=== PATIENT | female | born 1970 | race Asian ===

== ENCOUNTER 2016-12-22 08:07 | Outpatient (CLI) | payer OTHER | END 2016-12-22 23:59 | DX: Z00.00 Encounter for general adult medical examination without abnormal findings (principal) ==

== ENCOUNTER 2017-08-29 14:45 | Outpatient (CLI) | payer OTHER | END 2017-08-29 15:00 | disposition home or self-care (01) | LOC: RT.N 14:45 | PROVIDERS: ATTEND Family Medicine | DX: R42 Dizziness and giddiness (principal) | CPT/HCPCS: 93005 ==

== ENCOUNTER 2017-10-04 08:30 | Outpatient (CLI) | payer OTHER | END 2017-10-04 08:45 | disposition home or self-care (01) | LOC: RT.N 08:30 | PROVIDERS: ATTEND Family Medicine | DX: Z53.9 Procedure and treatment not carried out, unspecified reason (principal) ==

== ENCOUNTER 2018-11-20 08:00 | Outpatient (CLI) | payer BC, MEDICARE ==
[2018-11-20 19:36] LABS: BASOPHILS # (AUTO) 0.1 10^3/uL (0.0-0.1); EOSINOPHILS # (AUTO) 0.1 10^3/uL (0.0-0.7); HGB - HEMOGLOBIN 13.1 g/dL (12.0-16.0); LYMPHOCYTES # (AUTO) 2.4 10^3/uL (1.5-3.5); MEAN CORPUSCULAR HEMOGLOBIN 28.5 pg (27.0-31.0); MEAN CORPUSCULAR HGB CONC 32.7 g/dL (32.0-36.0); MEAN PLATELET VOLUME 7.4 fL (7.9-10.8); MONOCYTES # (AUTO) 0.3 10^3/uL (0.0-1.0); MONOCYTES % (AUTO) 4.6 %; NEUTROPHILS # (AUTO) 4.2 10^3/uL (1.5-6.6); NEUTROPHILS % (AUTO) 58.4 %; PLT - PLATELET COUNT 398 10^3/uL (130-450); RED CELL DISTRIBUTION WIDTH 13.1 % (12.0-15.0); WHITE BLOOD COUNT 7.1 x10^3/uL (4.8-10.8)
[2018-11-20 19:56] LABS: BUN - BLOOD UREA NITROGEN 20 mg/dL (6-20); CALCIUM 9.3 mg/dL (8.5-10.3); CARBON DIOXIDE - CO2 26 mmol/L (21-32); CHLORIDE 102 mmol/L (101-111); CHOL/HDL RATIO 3.8 (<4.4); CHOLESTEROL 210 mg/dL; CREATININE 0.7 mg/dL (0.4-1.0); GFR - MDRD 90 (>89); GLUCOSE 95 mg/dL (70-100); HDL CHOLESTEROL 55 mg/dL; LDL CHOLESTEROL,CALCULATED 125 mg/dL; LDL/HDL RATIO 2.3 (<4.4); SODIUM 137 mmol/L (135-145); VLDL CHOLESTEROL 30 mg/dL
== END 2018-11-20 23:59 | disposition home or self-care (01) ==
LOC: LAB.N 08:00
PROVIDERS: ATTEND Physician Assistant Medical
DX: Z00.00 Encounter for general adult medical examination without abnormal findings (principal)
CPT/HCPCS: 36415; 80048; 80061; 83721; 84443; 85025

== ENCOUNTER 2020-02-14 11:03 | Outpatient (CLI) | payer OTHER, BC ==
--- NOTE | 2020-02-15 09:43 | XRAY Report ---
Reason: RIGHT FOOT PAIN Procedure Date: 02/14/2020 Accession Number: [id number] / [id number] Procedure: WCP - Foot 3 View RT CPT Code: Final Report FULL RESULT: EXAM: RIGHT FOOT RADIOGRAPHY EXAM DATE: 02/14/2020 11:03 AM. CLINICAL HISTORY: Right foot pain. Crushing injury to all digits on right foot 4 days ago. COMPARISON: None. TECHNIQUE: 3 nonweightbearing views. FINDINGS: Bones: There is an acute nondisplaced comminuted intra-articular fracture of the distal phalanx of the great toe. The other bones of the foot are intact. No bone lesion. There is mild spurring at the Achilles tendon insertion on the posterior calcaneus. Joints: Normal. No subluxations. Soft Tissues: There is soft tissue swelling of the forefoot and toes. IMPRESSION: Acute nondisplaced comminuted intra-articular fracture of the distal phalanx of the great toe. RADIA
== END 2020-02-14 11:04 | disposition home or self-care (01) ==
LOC: DI.WCP 11:03
PROVIDERS: ATTEND Family Medicine
DX: S92.424A Nondisplaced fracture of distal phalanx of right great toe, initial encounter for closed fracture (principal)

== ENCOUNTER 2020-03-20 14:13 | Outpatient (CLI) | payer OTHER, BC ==
--- NOTE | 2020-03-20 16:29 | XRAY Report ---
Reason: RIGHT GREAT TOE FRACTURE Procedure Date: 03/20/2020 Accession Number: [id number] / [id number] Procedure: WCP - Toe(s) RT CPT Code: Final Report FULL RESULT: PROCEDURE: Toe(s) RT INDICATIONS: RIGHT GREAT TOE FRACTURE TECHNIQUE: 3 views of the first toe(s) acquired. COMPARISON: Toe x-ray 02/14/2020 FINDINGS: Bones: Comminuted fracture at the proximal aspect of the distal first bones extending to the articular surface is identified. This appears slightly more prominent when compared to prior exam. Previous fracture lucency identified extending to the midportion towards the tuft remains present although less prominent when compared to prior exam. No suspicious bony lesions. Soft tissues: No suspicious soft tissue densities. IMPRESSION: First distal phalanx fracture with intra-articular extension with slightly more prominent appearance of lucency and diastases of the proximal portion compared to prior exam. Reviewed by: Dian Schroeder MD on 03/20/2020 4:28 PM PDT Approved by: Dian Schroeder MD on 03/20/2020 4:28 PM PDT Station ID: [id number]
== END 2020-03-20 23:59 | disposition home or self-care (01) ==
LOC: DI.WCP 14:13
PROVIDERS: ATTEND Family Medicine
DX: S92.421D Displaced fracture of distal phalanx of right great toe, subsequent encounter for fracture with routine healing (principal)
CPT/HCPCS: 73660

== ENCOUNTER → 2020-07-06 | Outpatient (CLI) | payer BC, OTHER ==
[2020-07-06 11:52] LABS: BASOPHILS % (AUTO) 0.3 %; EOSINOPHILS # (AUTO) 0.2 10^3/uL (0.0-0.7); EOSINOPHILS % (AUTO) 2.3 %; HGB - HEMOGLOBIN 13.1 g/dL (12.0-16.0); LYMPHOCYTES # (AUTO) 2.2 10^3/uL (1.5-3.5); LYMPHOCYTES % (AUTO) 29.7 %; MEAN CORPUSCULAR HEMOGLOBIN 28.7 pg (27.0-31.0); MEAN CORPUSCULAR HGB CONC 32.9 g/dL (32.0-36.0); MEAN CORPUSCULAR VOLUME 87.3 fL (81.0-99.0); MEAN PLATELET VOLUME 8.9 fL (7.9-10.8); MONOCYTES # (AUTO) 0.4 10^3/uL (0.0-1.0); MONOCYTES % (AUTO) 5.2 %; NEUTROPHILS # (AUTO) 4.7 10^3/uL (1.5-6.6); NEUTROPHILS % (AUTO) 62.2 %; PLT - PLATELET COUNT 391 10^3/uL (130-450); RED BLOOD COUNT 4.56 10^6/uL (4.20-5.40); RED CELL DISTRIBUTION WIDTH 11.8 % (12.0-15.0); WHITE BLOOD COUNT 7.5 x10^3/uL (4.8-10.8)
[2020-07-06 12:34] LABS: ALBUMIN 4.8 g/dL (3.2-5.5); ALBUMIN/GLOBULIN RATIO 1.2 (1.0-2.2); ALKALINE PHOSPHATASE 85 IU/L (42-121); ALT ALANINE AMINOTRANSFERASE 39 IU/L (10-60); AST ASPARTATE AMINOTRANSFERASE 28 IU/L (10-42); BILIRUBIN,TOTAL 0.6 mg/dL (0.2-1.0); BUN - BLOOD UREA NITROGEN 21 mg/dL (6-20); CALCIUM 9.6 mg/dL (8.5-10.3); CARBON DIOXIDE - CO2 26 mmol/L (21-32); CHLORIDE 102 mmol/L (101-111); CHOL/HDL RATIO 4.1 (<4.4); CHOLESTEROL 269 mg/dL; CREATININE 0.9 mg/dL (0.4-1.0); GLUCOSE 112 mg/dL (70-100); HDL CHOLESTEROL 65 mg/dL; LDL CHOLESTEROL,CALCULATED 172 mg/dL; LDL/HDL RATIO 2.6 (<4.4); SODIUM 138 mmol/L (135-145); TOTAL PROTEIN 8.8 g/dL (6.7-8.2); VLDL CHOLESTEROL 32 mg/dL
== END ==
LOC: LAB.WCP 09:55
PROVIDERS: ATTEND Family Medicine
DX: I10 Essential (primary) hypertension (principal)
CPT/HCPCS: 36415; 80053; 80061; 83721; 84443; 85025

== ENCOUNTER 2020-07-31 14:19 | Outpatient (CLI) | payer BC ==
--- NOTE | 2020-08-03 16:25 | Mammography Report ---
BILATERAL DIGITAL SCREENING MAMMOGRAM 3D/2D: 07/31/2020 CLINICAL: Baseline exam. No prior exams were available for comparison. There are scattered fibroglandular elements in both br easts. No significant masses, calcifications, or other findings are seen in either breast. IMPRESSION: NEGATIVE There is no mammographic evidence of malignancy. A 1 year screening mammogram is recommended. This exam was interpreted at Station ID: [id number]. NOTE: For mammograms, a report in lay terms will be sent to the patient. Approximately 15% of breast malignancies will not be visualized mammographically. In the management of a palpable breast mass, a negative mammogram must not discourage biopsy of a clinically suspicious lesion. Electronically Signed By: Ute morfin/nuha:07/31/2020 15:41:32 ACR BI-RADS Category 1: Negative 3341F PARENCHYMAL PATTERN: (A) - The breast(s) demonstrate(s) scattered fibroglandular densities. BI-RADS CATEGORY: (1) - 1 RECOMMENDATION: (ANNUAL) - Recommend routine annual screening mammography. [id number] 1 year screening LATERALITY: (B)
== END 2020-07-31 14:20 | disposition home or self-care (01) ==
LOC: DI.N 14:19
PROVIDERS: ATTEND Family Medicine
DX: Z12.31 Encounter for screening mammogram for malignant neoplasm of breast (principal)
CPT/HCPCS: 77063; 77067

== ENCOUNTER 2020-10-16 09:45 | Outpatient (CLI) | payer BC, OTHER ==
[2020-10-16 13:06] LABS: ALBUMIN 4.4 g/dL (3.2-5.5); ALBUMIN/GLOBULIN RATIO 1.3 (1.0-2.2); ALKALINE PHOSPHATASE 85 IU/L (42-121); ALT ALANINE AMINOTRANSFERASE 26 IU/L (10-60); AST ASPARTATE AMINOTRANSFERASE 19 IU/L (10-42); BILIRUBIN,TOTAL 0.5 mg/dL (0.2-1.0); BUN - BLOOD UREA NITROGEN 24 mg/dL (6-20); CALCIUM 9.3 mg/dL (8.5-10.3); CARBON DIOXIDE - CO2 25 mmol/L (21-32); CHLORIDE 101 mmol/L (101-111); CHOL/HDL RATIO 4.1 (<4.4); CHOLESTEROL 249 mg/dL; GLUCOSE 99 mg/dL (70-100); HDL CHOLESTEROL 61 mg/dL; LDL CHOLESTEROL,CALCULATED 159 mg/dL; LDL/HDL RATIO 2.6 (<4.4); SODIUM 137 mmol/L (135-145); TOTAL PROTEIN 7.7 g/dL (6.7-8.2); VLDL CHOLESTEROL 29 mg/dL
--- OUTSIDE RECORDS SUMMARY | 2020-10-21 01:55 | EXTERNAL MEDICAL SUMMARY RPT | Continuity of Care Document ---
:1970 Demographics Phone Unavailable Preferred Language Cameroonian Marital Status Unknown Yazidi Affiliation Unknown Race Unknown Ethnic Group Unknown Author Organization [place] Address [address] [place] [address] Phone Care Team Providers Name Role Phone PATY Unavailable Unavailable Unavailable Unavailable Yimi Unavailable Unavailable Problems date description facility 2020-07-06 09:55 [facility] 2020-07-23 00:00:00 Other and unspecified [facility] hyperlipidemia [facility] 2020-07-23 00:00:00 [facility] disease, [facility] 2020-07-23 00:00:00 COMPREHENSIVE METABOLIC PANEL [facility] 2020-07-23 00:00:00 [facility] 2020-07-23 00:00:00 [facility], unspecified [facility] 2020-07-23 00:00:00 Chronic kidney disease, stage 2 [facility] ([facility] 2020-07-23 00:00:00 Health-related behavior [facility] 2020-07-23 00:00:00 [facility] 2020-07-23 00:00:00 Exercise [facility] 2020-07-23 00:00:00 Never smoker [facility] 2020-07-23 00:00:00 Chronic kidney disease stage 2 [facility] 2020-07-23 00:00:00 Hyperlipidemia [facility] 2020-07-23 00:00:00 Alcohol use [facility] 2020-07-23 00:00:00 Tobacco smoking status NHIS [facility] 2020-07-23 00:00:00 Total score[facility] 2020-07-23 15:30 OTHER PHYSEAL FRACTURE OF [facility] PHALANX OF RIGHT TOE, D 2020-07-31 14:45 OTHER PHYSEAL FRACTURE OF [facility] PH[facility] OF RIGHT TOE, D 2020-10-16 00:00 HYPERLIPIDEMIA, UNSPECIFIED [facility] 2020-10-16 09:45 HYPERLIPIDEMIA, UNSPECIFIED [facility] Procedures date description facility 2020-07-23 00:00:00 COMPREHENSIVE METABOLIC PANEL [facility] date description facility 2020-07-23 00:00:00 LIPIDS SCREEN [facility] Prim negrita Care [facility] date description facility 2020-07-23 00:00:00 [facility] Results Social History date description facility 2020-07-23 00:00:00 [facility]oker [facility] Social History date description facility 2020-07-23 00:00:00 [facility] date description facility [id number]
== END 2020-10-16 09:46 | disposition home or self-care (01) ==
LOC: LAB.WCP 09:45
PROVIDERS: ATTEND Family Medicine
DX: N18.2 Chronic kidney disease, stage 2 (mild) (principal); E78.5 Hyperlipidemia, unspecified
CPT/HCPCS: 36415; 80053; 80061; 83721

== ENCOUNTER 2020-12-07 23:30 | Emergency (ER) | payer OTHER ==
[2020-12-08] MEDS ORDERED: SODIUM CHLORIDE 0.9% 1,000 ML IV STA (00:12)
[2020-12-08] MEDS ORDERED: HYDROmorphone 1 MG/ML CARPUJECT IVP STA (00:12)
[2020-12-08] MEDS ORDERED: ONDANSETRON 4 MG/2 ML VIAL IVP STA (00:12)
[2020-12-08] MEDS ORDERED: KETOROLAC 15 MG/ML VIAL IVP STA (00:12)
[2020-12-08 00:19] LABS: BASOPHILS # (AUTO) 0.1 10^3/uL (0.0-0.1); BASOPHILS % (AUTO) 0.9 %; EOSINOPHILS # (AUTO) 0.2 10^3/uL (0.0-0.7); EOSINOPHILS % (AUTO) 2.2 %; HCT - HEMATOCRIT 38.9 % (37.0-47.0); HGB - HEMOGLOBIN 12.8 g/dL (12.0-16.0); LYMPHOCYTES # (AUTO) 2.2 10^3/uL (1.5-3.5); LYMPHOCYTES % (AUTO) 23.1 %; MEAN CORPUSCULAR HEMOGLOBIN 28.7 pg (27.0-31.0); MEAN CORPUSCULAR HGB CONC 32.9 g/dL (32.0-36.0); MEAN CORPUSCULAR VOLUME 87.2 fL (81.0-99.0); MEAN PLATELET VOLUME 8.9 fL (7.9-10.8); MONOCYTES # (AUTO) 0.6 10^3/uL (0.0-1.0); MONOCYTES % (AUTO) 5.7 %; NEUTROPHILS # (AUTO) 6.6 10^3/uL (1.5-6.6); NEUTROPHILS % (AUTO) 67.9 %; PLT - PLATELET COUNT 397 10^3/uL (130-450); RED BLOOD COUNT 4.46 10^6/uL (4.20-5.40); RED CELL DISTRIBUTION WIDTH 11.9 % (12.0-15.0); WHITE BLOOD COUNT 9.7 x10^3/uL (4.8-10.8)
[2020-12-08 00:32] LABS: ALBUMIN 4.6 g/dL (3.2-5.5); ALBUMIN/GLOBULIN RATIO 1.2 (1.0-2.2); BILIRUBIN,TOTAL 0.3 mg/dL (0.2-1.0); CALCIUM 9.4 mg/dL (8.5-10.3); CREATININE 1.2 mg/dL (0.4-1.0); POTASSIUM 3.6 mmol/L (3.5-5.0); TOTAL PROTEIN 8.4 g/dL (6.7-8.2)
--- NOTE | 2020-12-08 02:19 | ED Physician Documentation ---
PD HPI ABD PAIN - Stated complaint Stated Complaint: ABD PX, MID BACK PX - Chief complaint Chief Complaint: Abd Pain - History obtained from History obtained from: Patient - History of Present Illness Timing - onset: How many hours ago (2) Timing - duration: Hours (2) Timing - details: Abrupt onset, Still present Quality: Aching, Sharp, Pain Location: RUQ, Epigastric, Other (substernal) Radiation: Right shoulder, Upper back. No: Right flank Improved by: No: Eating, Position Worsened by: Eating, Moving, Palpation. No: Breathing Associated symptoms: Nausea, Vomiting (couple of times). No: Fever, Hematemesis, Diarrhea, Constipation, Dysuria, Hematuria Similar symptoms before: Diagnosis (infrequent similar episodes previously Dx as biliary colic, with U/S showing gallstones. Has been referred to surgery, but has episodes infrequently so has not opted for surgery as yet. No prior Dx of kidney stones nor pancreatitis.) Recently seen: Not recently seen (has been many months since similar episode.) Review of Systems Constitutional: denies: Fever, Chills Nose: denies: Rhinorrhea / runny nose, Congestion Throat: denies: Sore throat Respiratory: denies: Cough GI: reports: Abdominal Pain, Nausea, Vomiting. denies: Constipation, Diarrhea, Bloody / black stool : denies: Dysuria, Frequency, Hematuria, Discharge Skin: denies: Rash Musculoskeletal: denies: Neck pain, Back pain Neurologic: denies: Near syncope PD PAST MEDICAL HISTORY - Past Medical History Past Medical History: Yes Cardiovascular: Hypertension Respiratory: None Neuro: None GI: Cholelithiasis : None - Past Surgical History Past Surgical History: Yes /AUTISM SPECIALIST: Hysterectomy - Present Medications Home Medications: Ambulatory Orders Medication Instructions Recorded Confirmed Lisinopril [Prinivil] 10 mg PO DAILY 12/07/20 12/07/20 amLODIPine [Norvasc] 10 mg PO DAILY 12/07/20 12/07/20 HYDROcod/ACETAM 5/325 [Normanna 5/325] 1 ea PO Q6H PRN #20 tab 12/08/20 Ondansetron Odt [Zofran] 4 mg TL Q6H PRN #10 tab 12/08/20 Tamsulosin [Flomax] 0.4 mg PO DAILY #5 cap 12/08/20 - Allergies Allergies/Adverse Reactions: Allergies Allergy/AdvReac Type Severity Reaction Status Date / Time No Known Drug Allergies Allergy Verified 12/07/20 23:41 - Social History Does the pt smoke?: No Smoking Status: Never smoker Does the pt drink ETOH?: No Does the pt have substance abuse?: No - Immunizations Immunizations are current?: Yes - POLST Patient has POLST: No PD ED PE NORMAL - Vitals Vital signs reviewed: Yes - General General: Alert and oriented X 3, Well developed/nourished, Other (appears in pain due to upper abd/epigastric area. ) - HEENT HEENT: Moist mucous membranes, Pharynx benign - Neck Neck: Supple, no meningeal sign, No adenopathy - Cardiac Cardiac: RRR, No murmur - Respiratory Respiratory: Clear bilaterally - Abdomen Abdomen: Normal bowel sounds, Soft, Non distended, No organomegaly, Other (tender epigastric to RUQ area with local guarding and some percussion tender. No rebound. ) - Female Female : Deferred - Rectal Rectal: Deferred - Back Back: No CVA TTP - Derm Derm: Normal color, Warm and dry - Extremities Extremities: No tenderness to palpate, Normal ROM s pain, No edema, No calf tenderness / cord - Neuro Neuro: Alert and oriented X 3, No motor deficit, Normal speech Results - Vitals Vitals: Vital Signs - 24 hr 12/07/20 12/08/20 12/08/20 23:38 01:40 03:06 Temperature 36.3 C L 36.6 C Heart Rate 85 65 61 Respiratory 18 16 13 Rate Blood Pressure 146/80 H 115/71 132/84 H O2 Saturation 99 99 98 Oxygen O2 Source Room air - Labs Labs: Laboratory Tests 12/08/20 12/08/20 12/08/20 00:10 00:10 00:10 WBC 9.7 RBC 4.46 Hgb 12.8 Hct 38.9 MCV 87.2 MCH 28.7 MCHC 32.9 RDW 11.9 L Plt Count 397 MPV 8.9 Neut # (Auto) 6.6 Lymph # (Auto) 2.2 [place] # (Auto) 0.6 Eos # (Auto) 0.2 Baso # (Auto) 0.1 Absolute Nucleated RBC 0.00 Nucleated RBC % 0.0 Sodium 138 Potassium 3.6 Chloride 103 Carbon Dioxide 24 Anion Gap 11.0 BUN 31 H Creatinine 1.2 H Estimated GFR (MDRD) 48 L Glucose 127 H Calcium 9.4 Total Bilirubin 0.3 AST 17 ALT 20 Alkaline Phosphatase 76 Troponin I High Sens 2.8 Total Protein 8.4 H Albumin 4.6 Globulin 3.8 Albumin/Globulin Ratio 1.2 Lipase 44 - Rads (name of study) RUQ U/S Radiology: Prelim report reviewed (gallstones with one nonmobile in the neck. ENlarged gallbladder without wall thickening nor surrounding fluid. CBD 7 mm without visible ductal stones. Hydronephrosis noted. ), See rad report KUB CT Radiology: Prelim report reviewed (7-8 mm distal right ureteral stone with hydroureter/nephrosis. Distended GB with stones; clinical correlation advised (U/S already had been done). ), See rad report PD MEDICAL DECISION MAKING - ED course Complexity details: reviewed results, re-evaluated patient (feeling much better with IV meds. No CVA tenderness. Still seems likely to be biliary colic with incidental finding of ureteral stone. Could be chronic ureteral stone?), considered differential (symptoms seem c/w biliary colic and has known stones. Will get labs/US to eval for acute cholecystitis instead. ), d/w patient Departure - Departure Disposition: 01 Home, Self Care Clinical Impression: Acute upper abdominal pain, Biliary colic, Gallstones, Ureterolithiasis Condition: Stable Record reviewed to determine appropriate education?: Yes Instructions: ED Gallstone W Biliary Colic, ED Stone Renal W Colic Follow-Up: Dony Geller MD [Provider Admit Priv/Credential] - Jennifer Garcia MD [Provider Admit Priv/Credential] - Shyann Saldana MD [Provider Admit Priv/Credential] - Prescriptions: Tamsulosin [Flomax] 0.4 mg PO DAILY #5 cap HYDROcod/ACETAM 5/325 [Normanna 5/325] 1 ea PO Q6H PRN #20 tab PRN Reason: Pain Ondansetron Odt [Zofran] 4 mg TL Q6H PRN #10 tab PRN Reason: Nausea / Vomiting Comments: Your pain episode tonight sounds like a gallbladder spasm related to the g allstones. This is likely similar to prior episodes you have had. Follow-up with general surgery if you were to decide you would want to have your gallbladder removed to prevent further episodes. Meanwhile have a low-fat diet. Simple food and well-hydrated over the next day or 2 in particular. Ondansetron if needed for nausea and Tylenol or hydrocodone if needed for pain. We also found some swelling of the right kidney related to a kidney stone in the lower part of the right ureter. This is causing the back pressure to the right kidney. Your pain episode does not seem to be related to the kidney stone but we should still watch to see that you passed this okay in the near future. Follow-up with your primary care and also urology regarding the kidney stone. The closest urology is in [facility] though they do do clinics in [place] I believe. Call urology for follow-up appointment (I provided the name of one urologist but you could see anyone in that group). Discharge Date/Time: 12/08/20 03:31
[2020-12-08] MEDS ORDERED: ONDANSETRON ODT 4 MG Prepack 2 TL PRN (02:35)
[2020-12-08] MEDS ORDERED: HYDROcod/ACET 5/325 Prepack 4 PO STA (02:35)
[2020-12-08 03:06] VITALS: BP 132/84
--- NOTE | 2020-12-08 08:10 | CT Report ---
PROCEDURE: Abdomen/Pelvis WO INDICATIONS: right hydronephrosis on U/S TECHNIQUE: Noncontrast 5 mm thick sections acquired from the diaphragms to the symphysis. 5 mm coronal and sagi ttal reformats were then performed. For radiation dose reduction, the following was used: automated exposure control, adjustment of mA and/or kV according to patient size. COMPARISON: None. FINDINGS: Image quality: Excellent. ABDOMEN: Lung bases: Minimal bibasilar atelectasis. Heart size is normal. Solid organs: Liver and spleen are normal in size. Gallbladder contains multiple rim calcified gall stones. No CT evidence for pericholecystic inflammatory changes. Gallbladder is mildly distended. Pa ncreas is normal in contours. No adrenal nodules. There is mild-moderate right-sided hydroureterone phrosis with an obstructing 8 mm distal right ureteral stone seen on image 101, series 3. No signific ant periureteral or perinephric stranding. This is visualized approximately 6 cm proximal to the righ t ureterovesicular junction. Left kidney is normal in size, without hydronephrosis or nephrolithiasis . Peritoneum and bowel: Unenhanced bowel loops demonstrate normal wall thickness and caliber. No free fluid or air. Nodes and vessels: No retroperitoneal or mesenteric adenopathy by size criteria. Aorta and inferior vena cava are normal in caliber. Miscellaneous: No ventral hernias. PELVIS: Genitourinary: Bladder wall thickness is normal. No stones noted within the urinary bladder. Miscellaneous: No inguinal hernias or adenopathy. Bones: No suspicious bony lesions. No acute vertebral body compression fractures. IMPRESSION: 1. There is an obstructing 8 mm right distal ureteral stone with associated mild-moderate right-sided hydroureteronephrosis. 2. Mildly distended gallbladder with gallstones. No CT evidence for acute cholecystitis. Recommend cl inical correlation. Consider further evaluation with ultrasound No significant discrepancy with initial interpretation by overnight radiologist. Reviewed by: Eric Olguin MD on 12/08/2020 8:09 AM PST Approved by: Eric Olguin MD on 12/08/2020 8:09 AM PST Station ID: [id number]
--- NOTE | 2020-12-08 08:26 | Ultrasound Report ---
PROCEDURE: Abdomen Limited INDICATIONS: upper abd pain since afternoon; h/o gallstones TECHNIQUE: Real-time focused scanning was performed of the abdomen, with image documentation. COMPARISON: CT abdomen/pelvis 12/08/2020 FINDINGS: The liver is normal in size and echotexture, without intrahepatic biliary distention. The gallbladder contains shadowing gallstones, but the gallbladder wall is normal in thickness at 2.5 mm. There is a calculus within the gallbladder neck which is nonmobile, and best potentially an early ma nifestation of obstructive calculus. Focal tenderness during sonographic palpation of the gallbladder was present. The common duct measures up to 7.4 mm. The pancreas is poorly visualized due to bowel gas. Right-side d hydronephrosis is prominent. This appears secondary to a distal right ureteral stone seen within th e mid pelvis on subsequent CT scanning. IMPRESSION: Prominent hydronephrosis is present on the right, associated with a CT-documented distal right ureter al stone at the mid pelvis level. Moderate sized shadowing gallstones are present within the gallbladder lumen, and there is one stone which is present at the gallbladder neck that is nonmobile. Depending on the clinical status follow-u p surgical consultation may be warranted. Currently the gallbladder area is tender but the gallbladde r wall was not abnormally thickened and the adjacent bile ducts are not distended. Reviewed by: Duarte Valle MD on 12/08/2020 8:24 AM PST Approved by: Duarte Valle MD on 12/08/2020 8:24 AM PST Station ID: [id number]
== END 2020-12-08 03:31 | disposition home or self-care (01) ==
LOC: ED 23:30
DX: K80.20 Calculus of gallbladder without cholecystitis without obstruction (principal); N13.2 Hydronephrosis with renal and ureteral calculous obstruction; R11.2 Nausea with vomiting, unspecified; I10 Essential (primary) hypertension
CPT/HCPCS: 36415; 74176; 76705; 80053; 83690; 84484; 85025; 93005; 96361; 96374; 96375; 99284; J1170

== ENCOUNTER 2020-12-16 08:00 | Outpatient (CLI) | payer OTHER ==
[2020-12-16 18:52] LABS: CALCIUM 8.8 mg/dL (8.5-10.3); POTASSIUM 3.4 mmol/L (3.5-5.0)
== END 2020-12-16 23:59 | disposition home or self-care (01) ==
LOC: LAB.WCP 08:00
PROVIDERS: ATTEND Internal Medicine
DX: N20.1 Calculus of ureter (principal)
CPT/HCPCS: 36415; 80048; 83970

== ENCOUNTER 2021-02-22 08:00 | Outpatient (CLI) | payer OTHER | END 2021-02-22 23:59 | disposition home or self-care (01) | LOC: LAB.R 08:00 | PROVIDERS: ATTEND Family Medicine | DX: L03.116 Cellulitis of left lower limb (principal); L02.416 Cutaneous abscess of left lower limb | CPT/HCPCS: 81599; 87070; 87075; 87147; 87186; 87205 ==

== ENCOUNTER 2021-06-14 09:59 | Outpatient (CLI) | payer OTHER ==
[2021-06-14 14:46] LABS: CREATININE 0.9 mg/dL (0.4-1.0)
[2021-06-14 14:51] LABS: MICROALBUM/CREATININE RATIO,UR 61.4 ug/mg (<30.0); MICROALBUMIN,URINE 3.5 mg/dL (0-300.0)
[2021-06-14 18:38] LABS: ESTIMATED AVERAGE GLUCOSE 128 mg/dL (70-100); HEMOGLOBIN A1c% 6.1 % (4.27-6.07)
== END 2021-06-14 10:00 | disposition home or self-care (01) ==
LOC: LAB.N 09:59
PROVIDERS: ATTEND Internal Medicine
DX: I10 Essential (primary) hypertension (principal); Z83.3 Family history of diabetes mellitus
CPT/HCPCS: 36415; 80048; 82043; 82570; 83036

== ENCOUNTER 2021-09-30 08:00 | Outpatient (CLI) | payer OTHER ==
[2021-09-30 12:27] LABS: BASOPHILS # (AUTO) 0.1 10^3/uL (0.0-0.1); EOSINOPHILS # (AUTO) 0.2 10^3/uL (0.0-0.7); EOSINOPHILS % (AUTO) 2.6 %; HCT - HEMATOCRIT 36.6 % (37.0-47.0); HGB - HEMOGLOBIN 12.2 g/dL (12.0-16.0); LYMPHOCYTES # (AUTO) 2.3 10^3/uL (1.5-3.5); LYMPHOCYTES % (AUTO) 33.8 %; MEAN CORPUSCULAR HGB CONC 33.3 g/dL (32.0-36.0); MEAN CORPUSCULAR VOLUME 87.1 fL (81.0-99.0); MEAN PLATELET VOLUME 9.3 fL (7.9-10.8); MONOCYTES # (AUTO) 0.4 10^3/uL (0.0-1.0); MONOCYTES % (AUTO) 5.9 %; NEUTROPHILS # (AUTO) 3.9 10^3/uL (1.5-6.6); NEUTROPHILS % (AUTO) 56.6 %; PLT - PLATELET COUNT 365 10^3/uL (130-450); WHITE BLOOD COUNT 6.9 x10^3/uL (4.8-10.8)
[2021-09-30 12:46] LABS: ESTIMATED AVERAGE GLUCOSE 128 mg/dL (70-100); HEMOGLOBIN A1c% 6.1 % (4.27-6.07)
[2021-09-30 12:49] LABS: ALBUMIN 4.2 g/dL (3.2-5.5); ALBUMIN/GLOBULIN RATIO 1.3 (1.0-2.2); ALKALINE PHOSPHATASE 63 IU/L (42-121); ALT ALANINE AMINOTRANSFERASE 26 IU/L (10-60); AST ASPARTATE AMINOTRANSFERASE 20 IU/L (10-42); BILIRUBIN,TOTAL 0.3 mg/dL (0.2-1.0); BUN - BLOOD UREA NITROGEN 21 mg/dL (6-20); CALCIUM 8.9 mg/dL (8.5-10.3); CARBON DIOXIDE - CO2 27 mmol/L (21-32); CHLORIDE 104 mmol/L (101-111); CHOL/HDL RATIO 3.6 (<4.4); CHOLESTEROL 213 mg/dL; CREATININE 0.9 mg/dL (0.4-1.0); GFR - MDRD 67 (>89); GLUCOSE 107 mg/dL (70-100); HDL CHOLESTEROL 59 mg/dL; LDL CHOLESTEROL,CALCULATED 130 mg/dL; LDL/HDL RATIO 2.2 (<4.4); POTASSIUM 3.7 mmol/L (3.5-5.0); SODIUM 139 mmol/L (135-145); TOTAL PROTEIN 7.5 g/dL (6.7-8.2); TRIGLYCERIDES 120 mg/dL; URIC ACID 5.9 mg/dL (2.6-7.2); VLDL CHOLESTEROL 24 mg/dL
[2021-09-30 12:56] LABS: THYROID STIMULATING HORMONE 1.28 uIU/mL (0.34-5.60)
== END 2021-09-30 23:59 | disposition home or self-care (01) ==
LOC: LAB.WCP 08:00
PROVIDERS: ATTEND Internal Medicine
DX: E78.5 Hyperlipidemia, unspecified (principal); E21.5 Disorder of parathyroid gland, unspecified; R73.01 Impaired fasting glucose; N20.1 Calculus of ureter
CPT/HCPCS: 36415; 80053; 80061; 83036; 83721; 83970; 84443; 84550; 85025

== ENCOUNTER 2022-02-14 07:15 | Outpatient (CLI) | payer OTHER ==
[2022-02-14 12:53] LABS: ALBUMIN 4.2 g/dL (3.2-5.5); ALBUMIN/GLOBULIN RATIO 1.2 (1.0-2.2); ALKALINE PHOSPHATASE 60 IU/L (42-121); ALT ALANINE AMINOTRANSFERASE 24 IU/L (10-60); AST ASPARTATE AMINOTRANSFERASE 18 IU/L (10-42); BILIRUBIN,TOTAL 0.4 mg/dL (0.2-1.0); BUN - BLOOD UREA NITROGEN 21 mg/dL (6-20); CALCIUM 9.2 mg/dL (8.5-10.3); CARBON DIOXIDE - CO2 27 mmol/L (21-32); CHLORIDE 104 mmol/L (101-111); CHOL/HDL RATIO 3.6 (<4.4); CHOLESTEROL 235 mg/dL; CREATININE 0.9 mg/dL (0.4-1.0); GFR - MDRD 67 (>89); GLUCOSE 127 mg/dL (70-100); HDL CHOLESTEROL 66 mg/dL; LDL CHOLESTEROL,CALCULATED 145 mg/dL; LDL/HDL RATIO 2.2 (<4.4); POTASSIUM 3.9 mmol/L (3.5-5.0); SODIUM 140 mmol/L (135-145); TOTAL PROTEIN 7.7 g/dL (6.7-8.2); TRIGLYCERIDES 120 mg/dL; VLDL CHOLESTEROL 24 mg/dL
[2022-02-14 12:54] LABS: CREATININE,URINE 83.7 mg/dL; MICROALBUM/CREATININE RATIO,UR 53.8 ug/mg (<30.0); MICROALBUMIN,URINE 4.5 mg/dL (0-300.0)
[2022-02-14 13:01] LABS: ESTIMATED AVERAGE GLUCOSE 134 mg/dL (70-100); HEMOGLOBIN A1c% 6.3 % (4.27-6.07)
== END 2022-02-14 07:16 | disposition home or self-care (01) ==
LOC: LAB.N 07:15
PROVIDERS: ATTEND Internal Medicine
DX: I10 Essential (primary) hypertension (principal); E78.5 Hyperlipidemia, unspecified; R73.03 Prediabetes; E21.5 Disorder of parathyroid gland, unspecified
CPT/HCPCS: 36415; 80053; 80061; 82043; 82570; 83036; 83721; 83970

== ENCOUNTER 2022-06-14 07:41 | Outpatient (CLI) | payer OTHER ==
[2022-06-14 12:27] LABS: CALCIUM 9.5 mg/dL (8.5-10.3); POTASSIUM 4.2 mmol/L (3.5-5.0)
[2022-06-14 12:44] LABS: CREATININE,URINE 80.5 mg/dL; MICROALBUM/CREATININE RATIO,UR 26.1 ug/mg (<30.0); MICROALBUMIN,URINE 2.1 mg/dL (0-300.0)
[2022-06-14 19:56] LABS: ESTIMATED AVERAGE GLUCOSE 143 mg/dL (70-100); HEMOGLOBIN A1c% 6.6 % (4.27-6.07)
== END 2022-06-14 07:42 | disposition home or self-care (01) ==
LOC: LAB.N 07:41
PROVIDERS: ATTEND Internal Medicine
DX: I10 Essential (primary) hypertension (principal); R73.03 Prediabetes
CPT/HCPCS: 36415; 80048; 82043; 82570; 83036

== ENCOUNTER 2022-11-07 15:11 | Outpatient (CLI) | payer OTHER ==
--- NOTE | 2022-11-08 11:41 | Mammography Report ---
BILATERAL DIGITAL SCREENING MAMMOGRAM 3D/2D: 11/07/2022 CLINICAL: Routine screening. Comparison is made to exam dated: 07/31/2020 mammogram - [facility]. There are scattered areas of fibroglandular density in both breasts (category b / 25%-50% glandular t issue). No significant masses, calcifications, or other findings are seen in either breast. There has been no significant interval change. IMPRESSION: NEGATIVE There is no mammographic evidence of malignancy. A 1 year screening mammogram is recommended. Based on the Tyrer Cuzick model (a risk assessment model) the patients lifetime risk is 8.2% and her 10 year risk is 1.9%. According to the ACR, ACS, and NCCN guidelines, an annual breast MRI exam jed g with mammogram is recommended if the patients lifetime risk is 20% or greater. This exam was interpreted at Station ID: [id number]. NOTE: For mammograms, a report in lay terms will be sent to the patient. Approximately 15% of breast malignancies will not be visualized mammographically. In the management of a palpable breast mass, a negative mammogram must not discourage biopsy of a clinically suspicious lesion. Electronically Signed By: Shiv Marquez M.D. acr/penrad:11/07/2022 16:56:27 ACR BI-RADS Category 1: Negative 3341F PARENCHYMAL PATTERN: (A) - The breast(s) demonstrate(s) scattered fibroglandular densities. BI-RADS CATEGORY: (1) - 1 RECOMMENDATION: (ANNUAL) - Recommend routine annual screening mammography. [id number] 1 year screening LATERALITY: (B)
== END 2022-11-07 15:12 | disposition home or self-care (01) ==
LOC: DI.N 15:11
PROVIDERS: ATTEND Internal Medicine
DX: Z12.31 Encounter for screening mammogram for malignant neoplasm of breast (principal)

== ENCOUNTER 2023-09-29 10:14 | Day surgery (SDC) | payer OTHER ==
[~2023-09-29 10:14] MED LIST: PROPOFOL 200 MG/20 ML VIAL IVP ONE
[2023-09-29] MEDS ORDERED: LACTATED RINGERS 1,000 ML IV ONE (10:20)
--- NOTE | 2023-09-29 10:40 | ANESTHESIA ---
Pre-Anesthesia VS, & Labs - Diagnosis SCREENING - Procedure COLONOSCOPY Height: 4 ft 9 in Weight (kg): 60 kg Body Mass Index: 28.6 BMI Classification: Overweight - NPO Last Fluid Intake: 0800 - Is Patient ?: No Home Medications and Allergies amLODIPine [Norvasc] 10 mg PO DAILY 12/07/20 lisinopriL [Prinivil] 10 mg PO DAILY 12/07/20 Allergies/Adverse Reactions: Allergies Allergy/AdvReac Type Severity Reaction Status Date / Time No Known Drug Allergies Allergy Verified 12/07/20 23:41 Anes History & Medical History - Anesthetic History Anesthesia Complications: reports: No previous complications Family history of Anesthesia Complications: Denies Family history of Malignant Hyperthermia: Denies - Medical History Cardiovascular: reports: Hypertension Pulmonary: reports: None Gastrointestinal: reports: Cholelithiasis Urinary: reports: None (CKD2) Neuro: reports: None Smoking Status: Never smoker - Surgical History Gynecologic: reports: section, Hysterectomy Exam General: Alert, Oriented x3, Cooperative, No acute distress Dental: Partials Upper (WILL TAKE OUT) Mouth Openin Fingerbreadth Neck Mobility: Normal Mallampati classification: III Thyromental Distance: less than 4 cm Plan Anesthesia Type: Total IV Consent for Procedure(s) Verified and Reviewed: Yes Code Status: Attempt Resuscitation ASA classification: 2-Mild systemic disease Is this case an emergency?: No
[2023-09-29] MEDS ORDERED: LACTATED RINGERS 400 ML IV ONE (11:42)
--- NOTE | 2023-09-29 12:19 | ANESTHESIA POST OP EVALUATION ---
Anesthesia Post Eval - Post Anesthesia Eval Vitals: Last Vital Signs Temp 37 C 09/29/23 11:43 Pulse 78 09/29/23 11:54 Resp 18 09/29/23 11:54 BP 103/57 L 09/29/23 11:54 Pulse Ox 100 09/29/23 11:54 O2 Flow Rate CV Function Including HR & BP: Stable Pain Control: Satisfactory Nausea & Vomiting: Negative Mental Status: Baseline Respiratory Status: Airway Patent Hydration Status: Satisfactory Anesthesia Complications: None
[2023-09-29 12:33] VITALS: BP 113/34; O2SAT 98
== END 2023-09-29 10:15 | disposition home or self-care (01) ==
LOC: SDS 10:14
PROVIDERS: ATTEND Surgery
PROC: 0DBN8ZZ Excision of Sigmoid Colon, Via Natural or Artificial Opening Endoscopic (ICD-10-PCS; 2023-09-29)
PROC: 0DBP8ZZ Excision of Rectum, Via Natural or Artificial Opening Endoscopic (ICD-10-PCS; 2023-09-29)
PROC: 0DBH8ZZ Excision of Cecum, Via Natural or Artificial Opening Endoscopic (ICD-10-PCS; principal; 2023-09-29 11:30)
DX: Z12.11 Encounter for screening for malignant neoplasm of colon (principal); D12.0 Benign neoplasm of cecum; K62.1 Rectal polyp; K63.5 Polyp of colon; E11.22 Type 2 diabetes mellitus with diabetic chronic kidney disease; I12.9 Hypertensive chronic kidney disease with stage 1 through stage 4 chronic kidney disease, or unspecified chronic kidney disease; N18.2 Chronic kidney disease, stage 2 (mild)
CPT/HCPCS: 45380; J7120

== ENCOUNTER 2023-11-24 16:46 | Emergency (ER) | payer OTHER ==
[2023-11-24 17:15] LABS: BILIRUBIN,URINE NEGATIVE (NEGATIVE); GLUCOSE, URINE (UA) NEGATIVE (NEGATIVE); KETONES,URINE (UA) NEGATIVE (NEGATIVE); LEUKOCYTE ESTERASE, URINE NEGATIVE (NEGATIVE); NITRITE,URINE NEGATIVE (NEGATIVE); OCCULT BLOOD,URINE TRACE-INTA (NEGATIVE); PROTEIN,URINE NEGATIVE (NEGATIVE); UROBILINOGEN,URINE 0.2 (NORMAL) E.U./dL (NORMAL)
[2023-11-24 17:23] LABS: CLARITY,URINE CLEAR (CLEAR); HCG UR QUAL NEGATIVE
[2023-11-24 17:49] LABS: BASOPHILS # (AUTO) 0.1 10^3/uL (0.0-0.1); BASOPHILS % (AUTO) 0.9 %; EOSINOPHILS # (AUTO) 0.2 10^3/uL (0.0-0.7); EOSINOPHILS % (AUTO) 2.7 %; HCT - HEMATOCRIT 40.6 % (37.0-47.0); LYMPHOCYTES # (AUTO) 2.2 10^3/uL (1.5-3.5); MEAN CORPUSCULAR HEMOGLOBIN 27.8 pg (27.0-31.0); MEAN CORPUSCULAR VOLUME 86.8 fL (81.0-99.0); MEAN PLATELET VOLUME 8.5 fL (7.9-10.8); MONOCYTES # (AUTO) 0.7 10^3/uL (0.0-1.0); MONOCYTES % (AUTO) 10.1 %; NEUTROPHILS # (AUTO) 3.3 10^3/uL (1.5-6.6); NEUTROPHILS % (AUTO) 52.1 %; PLT - PLATELET COUNT 337 10^3/uL (130-450); RED BLOOD COUNT 4.68 10^6/uL (4.20-5.40); WHITE BLOOD COUNT 6.4 x10^3/uL (4.8-10.8)
[2023-11-24] MEDS: HYDROmorphone 0.5 MG/0.5 ML SYRINGE IM STA (18:01)
[2023-11-24] MEDS: ONDANSETRON 4 MG/2 ML VIAL IVP STA (18:01)
[2023-11-24 18:02] LABS: ALBUMIN 4.4 g/dL (3.2-5.5); ALBUMIN/GLOBULIN RATIO 1.3 (1.0-2.2); BILIRUBIN,TOTAL 0.2 mg/dL (0.2-1.0); CREATININE 0.9 mg/dL (0.6-1.3); POTASSIUM 3.6 mmol/L (3.5-4.5); TOTAL PROTEIN 7.8 g/dL (6.4-8.9)
--- NOTE | 2023-11-24 18:02 | ED Physician Documentation ---
PD HPI ABD PAIN - Stated complaint Stated Complaint: LLQ PX - Chief complaint Chief Complaint: Abd Pain - Additional information Additional information: 53-year-old female with no pertinent past medical history presents emergency department today for left lower quadrant pain. 3 days ago patient says that she was having fevers and chills at home, no rhinorrhea no cough no congestion no sore throat. She says that the fever has gone away she does not know how high it got at home but she is now experiencing worsening left lower quadrant pain. Patient said the pain went up to about a 9 out of 10 at home which is what ultimately brought her into the emergency department. She denies any dysuria, diarrhea, she has had mild nausea without emesis. She says that she has never had this happen before. PD PAST MEDICAL HISTORY - Past Medical History Past Medical History: Yes Cardiovascular: Hypertension Respiratory: None Neuro: None GI: Cholelithiasis : None - Past Surgical History Past Surgical History: Yes /[employer]CHITECT: section, Hysterectomy - Present Medications Home Medications: Ambulatory Orders Medication Instructions Recorded Confirmed amLODIPine [Norvasc] 10 mg PO DAILY 12/07/20 09/28/23 lisinopriL [Prinivil] 10 mg PO DAILY 12/07/20 09/28/23 - Allergies Allergies/Adverse Reactions: Allergies Allergy/AdvReac Type Severity Reaction Status Date / Time No Known Drug Allergies Allergy Verified 11/24/23 16:51 - Social History Does the pt smoke?: No Smoking Status: Never smoker Does the pt drink ETOH?: No Does the pt have substance abuse?: No - Immunizations Immunizations are current?: Yes - POLST Patient has POLST: No PD ED PE NORMAL - Vitals Vital signs reviewed: Yes - General General: Alert and oriented X 3, No acute distress, Well developed/nourished - HEENT HEENT: Atraumatic - Cardiac Cardiac: RRR - Respiratory Respiratory: No respiratory distress - Abdomen Abdomen: Normal bowel sounds, Soft, Other (mid-epigastric tenderness, although pt would not allow a full evaluation.) - Back Back: No CVA TTP - Derm Derm: Normal color, Warm and dry, No rash - Neuro Neuro: Alert and oriented X 3 Results - Vitals Vitals: Vital Signs - 24 hr 11/24/23 11/24/23 11/24/23 16:51 18:33 19:56 Temperature 36.8 C 36.8 C Heart Rate 88 86 77 Respiratory 16 18 16 Rate Blood Pressure 145/90 H 123/74 125/73 O2 Saturation 100 95 93 Oxygen O2 Source Room air - Labs Labs: Laboratory Tests 11/24/23 11/24/23 11/24/23 16:57 17:38 17:38 WBC 6.4 RBC 4.68 Hgb 13.0 Hct 40.6 MCV 86.8 MCH 27.8 MCHC 32.0 RDW 12.0 Plt Count 337 MPV 8.5 Neut # (Auto) 3.3 Lymph # (Auto) 2.2 [place] # (Auto) 0.7 Eos # (Auto) 0.2 Baso # (Auto) 0.1 Absolute Nucleated RBC 0.00 Nucleated RBC % 0.0 Sodium 139 Potassium 3.6 Chloride 106 Carbon Dioxide 25 Anion Gap 8.0 BUN 21 H Creatinine 0.9 Estimated GFR (MDRD) 66 L Glucose 93 Calcium 9.0 Magnesium 2.0 Total Bilirubin 0.2 AST 23 ALT 37 Alkaline Phosphatase 86 Total Protein 7.8 Albumin 4.4 Globulin 3.4 Albumin/Globulin Ratio 1.3 Lipase 37 Urine Color YELLOW Urine Clarity CLEAR Urine pH 6.0 Ur Specific [place] 1.020 Urine Protein NEGATIVE Urine Glucose (UA) NEGATIVE Urine Ketones NEGATIVE Urine Occult Blood TRACE-INTA Urine Nitrite NEGATIVE Urine Bilirubin NEGATIVE Urine Urobilinogen 0.2 (NORMAL) Ur Leukocyte Esterase NEGATIVE Ur Microscopic Review NOT INDICATED Urine Culture Comments NOT INDICATED Urine HCG, Qual NEGATIVE - Rads (name of study) CT abd/pelvis with Relevant Findings:: Final report received, EMP independent interpretation of test (Epiploic appendajitis, cholelithiasis, renal atrophy, right worse then left) PD Medical Decision Making - ED course ED course: 53-year-old female presents emergency department for left lower quadrant pain. CT scan reveals epiploic appendagitis, Cholelithiasis And right renal atrophy. At this time there is no further intervention warranted at this time. Her pain was significantly improved after receiving IV Dilaudid. She was sent home with a prepack of Percocet. I am prescribing a short course of short-acting opioid pain medication for this patient. I have reviewed the patients [employer] and no concerning findings were noted. I have discussed that the opioids are for short term therapy only, and will not be refilled from the ED. She is told to follow-up with her primary care provider for further evaluation of her right renal atrophy she said that she is aware of these findings she is also aware that she has gallstones as well. She is given strict return precautions all questions answered. Departure - Departure Disposition: 01 Home, Self Care Clinical Impression: Epiploic appendagitis, Renal atrophy, bilateral Cholelithiasis Qualifiers: Cholelithiasis location: other site Biliary obstruction: without biliary obstruction Qualified Code(s): K80.80 - Other cholelithiasis without obstruction Condition: Good Instructions: Abdominal Pain Comments: Thank you for trusting us with your care we have completed a CT, and the CT results are below -Findings of epiploic appendicitis adjacent to the mid descending colon. This is mainly self-limiting and nonsurgical. -Cholelithiasis. -Right renal atrophy, more pronounced compared to the prior exam. As we discussed in regards to the epiploic appendagitis, there is no interventions that are warranted. We are sending you home with a couple pain pills to help with your ongoing pain that you have been experiencing make sure that you are trying Tylenol ibuprofen before taking the pain medicine. Please follow-up with your primary care provider about the findings of cholelithiasis which is also known as gallstones, again there is no intervention warranted at this time just something to keep in mind that we did find in the CT scan. We also found that you have bilateral renal atrophy which is something you should also follow-up with your primary care provider about. Please come back to the emergency department if you are experiencing worsening abdominal pain, fevers chills, or any other concerning symptoms. Forms: PCP List Discharge Date/Time: 11/24/23 20:05
[2023-11-24] MEDS ORDERED: iohexoL-300 100 ML VIAL ONE (18:07)
[2023-11-24] MEDS: iohexoL-300 100 ML VIAL IVP ONE (18:27)
--- NOTE | 2023-11-24 19:32 | CT Report ---
PROCEDURE: Abdomen/Pelvis W INDICATIONS: LLQ pain CONTRAST: 100ml omni 300 TECHNIQUE: After the administration of intravenous contrast, a CT scan of the abdomen and pelvis was performed. Images were recorded and evaluated at appropriate window settings. Reformats: coronal and sagittal. F or radiation dose reduction, the following was used: automated exposure control, adjustment of mA and /or kV according to patient size. COMPARISON: 12/08/2020 FINDINGS: Image quality: Diagnostic. Lower chest: Unremarkable. Liver: No solid mass. Gallbladder and biliary tree: Cholelithiasis. Nondilated biliary tree. Spleen: No splenomegaly. Pancreas: No pancreatic ductal dilation. Adrenals: No adrenal nodule. Kidneys and ureters: Right renal atrophy. Symmetric enhancement. No hydronephrosis or hydroureter. Stomach, bowel and peritoneum: Stomach and small bowel loops are normal. There is a small ovoid focus of fat along the antimesenteric border of the descending colon with surrounding inflammatory changes . This extends from decompressed colon wall to the peritoneal surface. There is no diverticula or foc al colonic inflammation. Lymph nodes: No central or retroperitoneal adenopathy. Vessels: No infrarenal aortic aneurysm. PELVIS Reproductive organs: Uterus and ovaries are normal. Bladder: No abnormal wall thickening, accounting for underdistention. Pelvic lymph nodes: No pelvic adenopathy by size criteria. Bones: No aggressive osseous abnormality. Other: No significant ventral or inguinal hernia. IMPRESSION: Findings of epiploic appendicitis adjacent to the mid descending colon. This is mainly self-limiting and nonsurgical. Cholelithiasis. Right renal atrophy, more pronounced compared to the prior exam. Reviewed by: Alisa Josue MD on 11/24/2023 7:30 PM PST Approved by: Alisa Josue MD on 11/24/2023 7:30 PM PST Station ID: [id number]
[2023-11-24 20:03] VITALS: BP 125/73; O2SAT 93
[2023-11-24] MEDS: oxyCODONE/ACET 5/325 Prepack 4 PO STA (20:07)
== END 2023-11-24 20:05 | disposition home or self-care (01) ==
LOC: ED 16:46
DX: I12.9 Hypertensive chronic kidney disease with stage 1 through stage 4 chronic kidney disease, or unspecified chronic kidney disease (principal); N18.9 Chronic kidney disease, unspecified; K63.89 Other specified diseases of intestine; K80.80 Other cholelithiasis without obstruction
CPT/HCPCS: 36415; 74177; 80053; 81003; 81025; 83690; 83735; 85025; 96372; 99284; J1170; Q9967; 81001; 87086

== ENCOUNTER 2024-05-03 14:54 | Outpatient (CLI) | payer OTHER ==
--- NOTE | 2024-05-06 09:44 | Mammography Report ---
BILATERAL DIGITAL SCREENING MAMMOGRAM 3D/2D: 05/03/2024 CLINICAL: Routine screening. Comparison is made to exams dated: 11/07/2022 mammogram and 07/31/2020 mammogram - [facility]. There are scattered areas of fibroglandular density in both breasts (category b / 25%-50% glandular t issue). No significant masses, calcifications, or other findings are seen in either breast. There has been no significant interval change. IMPRESSION: NEGATIVE There is no mammographic evidence of malignancy. A 1 year screening mammogram is recommended. Based on the Tyrer Cuzick model (a risk assessment model) the patient's lifetime risk is 8.1% and her 10 year risk is 2.0%. According to the ACR, ACS, and NCCN guidelines, an annual breast MRI exam jed g with mammogram is recommended if the patient's lifetime risk is 20% or greater. This exam was interpreted at Station ID: [id number]. NOTE: For mammograms, a report in lay terms will be sent to the patient. Approximately 15% of breast malignancies will not be visualized mammographically. In the management of a palpable breast mass, a negative mammogram must not discourage biopsy of a clinically suspicious lesion. Electronically Signed By: Arthur burns/nuha:05/03/2024 15:53:31 letter sent: No_Letter ACR BI-RADS Category 1: Negative [id number] PARENCHYMAL PATTERN: (A) - The breast(s) demonstrate(s) scattered fibroglandular densities. BI-RADS CATEGORY: (1) - 1 RECOMMENDATION: (ANNUAL) - Recommend routine annual screening mammography. [id number] 1 year screening LATERALITY: (B)
== END 2024-05-03 14:55 | disposition home or self-care (01) ==
LOC: DI 14:54
PROVIDERS: ATTEND Internal Medicine
DX: Z12.31 Encounter for screening mammogram for malignant neoplasm of breast (principal); R92.323 Mammographic fibroglandular density, bilateral breasts